=== PATIENT | female | born 1975 ===

== ENCOUNTER 2020-03-09 13:21 | Outpatient (REF) | payer MEDICAID, SELFPAY | END 2020-03-09 13:22 | disposition home or self-care (01) | LOC: HO.LAB 13:21 | PROVIDERS: Visit Provider Internal Medicine | DX: Z20.828 Contact with and (suspected) exposure to other viral communicable diseases (principal) | CPT/HCPCS: C9803; U0003 ==

== ENCOUNTER 2020-06-27 14:05 | Outpatient (REF) | payer MEDICAID, SELFPAY | END 2020-06-27 14:06 | disposition home or self-care (01) | LOC: HO.LAB 14:05 | PROVIDERS: Visit Provider Internal Medicine | DX: Z20.822 Contact with and (suspected) exposure to COVID-19 (principal) | CPT/HCPCS: 36415; C9803; U0003; U0005 ==

== ENCOUNTER 2020-07-10 09:29 | Outpatient (REF) | payer MEDICAID, SELFPAY | END 2020-07-10 09:30 | disposition home or self-care (01) | LOC: HO.LAB 09:29 | PROVIDERS: Visit Provider Internal Medicine | DX: Z20.822 Contact with and (suspected) exposure to COVID-19 (principal) | CPT/HCPCS: 36415; C9803; U0003; U0005 ==

== ENCOUNTER 2023-01-25 08:10 | Emergency (ER) | payer MEDICAID, SELFPAY ==
[2023-01-25 08:11] VITALS: BP 123/69; PULSE 109; RESP 20; TEMP 36.4; O2SAT 97; BMI 36.5
[2023-01-25 08:33] LABS: IDNOW Serial# 08D9AD1C; Strep A Nucleic Acid Negative (Negative)
--- NOTE | 2023-01-25 08:51 | ED.URI ---
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 Patient also complained of myalgias and arthralgias. She denied fever, chills, nausea vomiting or diarrhea. Patient has not been vaccinated against COVID-19. Related Data Previous Rx's Medication Instructions Recorded acetaminophen 500 mg tablet 1,000 mg (2 x 500 mg) PO Q6H PRN 01/25/23 (Tylenol Extra Strength) fever or pain #20 tabs ibuprofen 400 mg tablet 400 mg PO TID PRN fever or pain 01/25/23 #30 tabs Allergies Allergy/AdvReac Type Severity Reaction Status Date / Time No Known Allergies Allergy Verified 01/25/23 08:16 [No Known Allergies*] Review of Systems Review of Systems: Yes all other systems are reviewed and are negative [facility] Past Medical History [facility] Narrative: Past medical history: None. Past surgical history: None. Social history: She denies tobacco, alcohol and drug use Social History Social History Advance Directives: No Physical Exam Vital Signs: Vital Signs: Last Vital Signs Temp 97.5 F 01/25/23 08:11 Pulse 109 H 01/25/23 08:11 Resp 20 01/25/23 08:11 BP 123/69 01/25/23 08:11 Pulse Ox 97 01/25/23 08:11 O2 Del Method Room Air 01/25/23 08:11 BMI result Body Mass Index 36.5 Vital signs were normal except for an elevated heart rate of 109 Exam: General: Awake, alert in no distress, patient has nasal congestion and a nonproductive cough Head: Normocephalic, atraumatic EENT: PERRL, Lids normal, sclera normal, conjunctiva normal, nose normal , ears normal, throat without erythema or exudates Neck: Supple, no adenopathy, trachea midline and nontender Lung: breath sounds symmetric, no wheezing, rales or rhonchi Chest: symmetric movement, nontender Heart: regular rate and rhythm, normal S1, S2 no murmurs or rubs Abdomen: soft, non-tender, nondistended, normal bowel sounds Back: no vertebral tenderness, no CVAT Extremities: no deformities, moves all extremities symmetrically Skin: no rashes, no lesion, normal color and warmth Neuro: Awake, alert, oriented, normal speech, cranial nerves intact, moves all extremities symmetrically Psych: Pleasant, cooperative Medical Decision Making Medical Decision Making MDM Narrative: 47-year-old female with no significant past medical history who presents emergency department for 4 days of URI symptoms include nonproductive cough, pleuritic chest pain, rhinorrhea, sore throat, myalgias arthralgias. Vital signs revealed an elevated heart rate of 109 otherwise unremarkable. Physical examination is consistent with rhinorrhea and a nonproductive sound cough. The following evaluation was ordered: COVID-19, influenza, RSV, rapid strep test. Patient was treated with Motrin 400 mg orally 1010: The patient's RSV was positive, COVID-19, influenza and rapid strep were negative. I discussed RSV virus infection with the patient. Patient was prescribed ibuprofen 40 mg every 6 hours as needed for pain and fever and Tylenol 500 mg, 2 pills every 4-6 hours as needed for pain and fever. She was given a work note. She was given printed and verbal instructions discharged home. Differential Diagnosis Differential Diagnoses: The differential diagnosis associated with the presentation includes Differential diagnosis includes was not limited to pneumonia, bronchitis, viral URI, bacterial URI, COVID-19, influenza, RSV, strep throat Lab Data Laboratory evaluation interpreted by me as follows: RSV positive. Labs: Lab Results 01/25/23 Range/Units 08:18 Influenza Type A (PCR) NEGATIVE (Negative) Influenza Type B (PCR) NEGATIVE (Negative) RSV RNA Qual (PCR) POSITIVE A (Negative) SARS-CoV-2 RNA (RT-PCR) NEGATIVE (Negative) S. pyogenes GrpA MAG Negative (Negative) Discharge Plan Discharge Clinical Impression: Respiratory syncytial virus (RSV) infection Patient Disposition: Home, Self-Care Instructions: Respiratory Syncytial Virus (ED) Additional Instructions: Your COVID-19, influenza and rapid strep test were negative. You are positive for RSV virus-this is a common virus that gives you a cold. The virus can last 2-4 weeks in your cough can sometimes last 2-4 weeks as well. Take ibuprofen 200 mg pills, 2 pills every 6 hours as needed for pain or fever. Take Tylenol (acetaminophen) 500 mg pills, 2 pills every 6 hours as needed for pain or fever. Follow-up with your doctor in 2 days. Please return to the emergency department if your symptoms get worse or if you develop any symptoms that are concerning to you. Please see the work note Prescriptions: New acetaminophen [Tylenol Extra Strength] 500 mg tablet 1,000 mg PO Q6H PRN (Reason: fever or pain) Qty: 20 0RF ibuprofen 400 mg tablet 400 mg PO TID PRN (Reason: fever or pain) Qty: 30 0RF Stand Alone Forms: Work/School Release Print Language: Cambodian
--- NOTE | 2023-01-25 09:53 | PC.NURSE ---
alert. speech clear, skin wpd, sore throat and body aches, nad, awaiting lab results
[2023-01-25 09:59] LABS: Influenza A PCR NEGATIVE (Negative); Influenza B PCR NEGATIVE (Negative); Resp Syncy Virus RNA Qual PCR POSITIVE (Negative); SARS COV2 PCR INHOUSE NEGATIVE (Negative)
== END 2023-01-25 10:26 | disposition home or self-care (01) ==
PROVIDERS: Emergency Provider Emergency Medicine Emergency Medical Services
DX: J02.9 Acute pharyngitis, unspecified (principal); B97.4 Respiratory syncytial virus as the cause of diseases classified elsewhere; Z20.822 Contact with and (suspected) exposure to COVID-19; Z20.828 Contact with and (suspected) exposure to other viral communicable diseases
CPT/HCPCS: 0241U; 87651; 99282; 99283

== ENCOUNTER 2023-03-23 15:49 | Emergency (ER) | payer OTHER, SELFPAY ==
--- NOTE | ~2023-03-23 | XR_ITS ---
EXAMINATION: XR FOOT, LEFT CLINICAL INFORMATION: Pain after hitting wood COMPARISON: None available. TECHNIQUE: AP, lateral, and oblique views of the left foot. FINDINGS: Soft tissue swelling more so in the region of the fifth toe is seen. There is a subtle linear lucency consistent with a transverse oriented fracture through the proximal aspect of the fifth proximal phalanx. There is no evidence for displacement or angulation. Mild degenerative changes seen elsewhere. Prominent calcaneal heel spur at the attachment point of the plantar aponeurosis. XR/XR foot LT 2V IMPRESSION: Nondisplaced transverse oriented fracture through the proximal aspect of the fifth proximal phalanx with associated soft tissue swelling.
[2023-03-23 16:46] VITALS: BP 114/66; PULSE 90; RESP 18; TEMP 36.8; O2SAT 96; BMI 36.9
--- NOTE | 2023-03-23 16:49 | ED_ITS ---
HPI - General Adult General Chief complaint: Extremity Injury, Lower Stated complaint: L toe pain Time Seen by Provider: 03/23/23 20:55 Source: patient Mode of arrival: ambulatory Limitations: no limitations History of Present Illness HPI narrative: patient comes to the emergency room complaining of left toe pain. Patient states that yesterday she hit her pinky toe on the left foot against the morning for nature. Patient complaining of ecchymosis and swelling. Patient denies any other injuries Related Data Previous Rx's Medication Instructions Recorded acetaminophen 500 mg tablet 1,000 mg (2 x 500 mg) PO Q6H PRN 01/25/23 (Tylenol Extra Strength) fever or pain #20 tabs ibuprofen 400 mg tablet 400 mg PO TID PRN fever or pain 01/25/23 #30 tabs Allergies Allergy/AdvReac Type Severity Reaction Status Date / Time No Known Allergies Allergy Verified 03/23/23 16:46 [No Known Allergies*] Review of Systems Review of Systems: Constitutional : No Weight loss, No Fever, No Chills, No Night Sweats, No Fati benjamín, No Malaise ENT/Mouth : No Hearing loss, No Ear Pain, No Nasal Congestion, No Sinus Pain, No Hoarseness, No sore throat, No Rhinorrhea, No Swallowing Difficulty Eyes: No Eye Pain, No Swelling, No Redness, No Foreign Body, No Discharge, No Vision Changes Cardiovascular : No Chest Pain, No SOB, No Dyspnea on Exertion, No Orthopnea, No Edema, No Palpitations Respiratory : No Cough, No Sputum, No Wheezing, No Smoke Exposure, No Dyspnea Gastrointestinal : No Nausea, No Vomiting, No Diarrhea, No Constipation, No abdominal Pain, No Hematochezia, No Melena Genitourinary : no irregular bleeding, No Dysuria, No Urinary Frequency, No Hematuria, No Urinary Incontinence, No Urgency, No Flank Pain, No Urinary Flow Changes, No Hesitancy Musculoskeletal : complaining of left pinky toe pain and swelling, No Myalgias, No Joint Swelling Skin : No Skin Lesions, No rash Neuro : No Weakness, No Numbness, No Paresthesias, No Loss of Consciousness, No Dizziness, No Headache Psych : No Anxiety/Panic, No Depression, No SI/HI/AH/VH, No Social Issues, Heme/Lymph: No Bruising, No Bleeding,No Lymphadenopathy Endocrine : No Polyuria, No Polydipsia, No Temperature Intolerance [facility] Social History Social History Advance Directives: No Advance Directives Information Provided: No Physical Exam ED Vital Signs: Vital Signs - 24 hr 03/23/23 16:46 Temperature 98.3 F Pulse Rate 90 Respiratory Rate 18 Blood Pressure 114/66 Pulse Oximetry 96 BMI result Body Mass Index 36.9 Const Other: Appearance: Alert. Oriented X3. No acute distress. Eyes: Pupils equal, round and reactive to light. ENT: Pharynx normal. Neck: Normal inspection. Neck supple. No lymph nodes noted. No crepitus CVS: Normal heart rate and rhythm. Pulses normal. Normal S1 and S2 Respiratory: No respiratory distress. Breath sounds normal. No Wheezing. No rales Abdomen: Soft and nontender. No rigidity. No distention. Skin: Skin warm and dry. Normal skin color. Normal skin turgor. Extremities: no lower extremity edema. Left 5th digit is swollen and has ecchymosis. Neuro: Oriented X 3. No motor deficit. No sensory deficit. Moving all extremities. No slurred speech. CN 2 through 12 grossly intact Psych: calm, cooperative, normal affect Course Course Course Narrative: RME: 47 yold female presents to the ED for left 4th and 5th toe pain after hitting foot on wood stump yesterday. patient state sno other trauma. xray orde red. Medical Decision Making Medical Decision Making [facility] Narrative: - My interpretation of x-ray of the foot: There is a small proxy fracture in the phalanx of the 5th toe, nondisplaced - declined Tylenol or ibuprofen. - Patient's 4th and 5th toes were amairani taped Differential Diagnosis Differential Diagnoses: The differential diagnosis associated with the presentation includes ( toe contusion, dislocation, fracture) Discharge Plan Discharge Clinical Impression: Fracture of toe Patient Disposition: Home, Self-Care Instructions: Toe Fracture (ED) Additional Instructions: Please follow-up with your primary care physician tomorrow. If you have any worsening or new symptoms, please return to the emergency room or call 911 Prescriptions: No Action acetaminophen [Tylenol Extra Strength] 500 mg tablet 1,000 mg PO Q6H PRN (Reason: fever or pain) Qty: 20 0RF ibuprofen 400 mg tablet 400 mg PO TID PRN (Reason: fever or pain) Qty: 30 0RF Stand Alone Forms: Work/School Release Interventions: ED Discharge Assessment Last Done: 03/23/23 21:51 Discharge Date/Time: 03/23/23 21:52
== END 2023-03-23 21:52 | disposition home or self-care (01) ==
PROVIDERS: Emergency Provider Emergency Medicine
DX: S92.502A Displaced unspecified fracture of left lesser toe(s), initial encounter for closed fracture (principal); X58.XXXA Exposure to other specified factors, initial encounter; Y93.9 Activity, unspecified; Y92.9 Unspecified place or not applicable; Y99.9 Unspecified external cause status
CPT/HCPCS: 73620; 99282; 99283

== ENCOUNTER 2023-11-12 11:11 | Emergency (ER) | payer SELFPAY ==
--- NOTE | ~2023-11-12 | XR_ITS ---
EXAMINATION: XR ABDOMEN KUB CLINICAL INDICATION: Pain. COMPARISON: None available. TECHNIQUE: AP view of the abdomen. FINDINGS: The bowel gas pattern is normal with no evidence of ileus or obstruction. No unusual soft tissue calcifications are noted. The bones are unremarkable. XR/XR KUB IMPRESSION: Unremarkable examination.
--- NOTE | ~2023-11-12 | US_ITS ---
EXAMINATION: US ABDOMEN LIMITED CLINICAL INFORMATION: Right upper quadrant discomfort. COMPARISON: None available. TECHNIQUE: Real-time imaging of the right upper quadrant abdominal viscera. FINDINGS: PANCREAS: Pancreatic head and body normal. Tail obscured by midline bowel gas. LIVER: There is an echogenic mass in the right lobe of the liver at 29 x 31 x 29 mm, likely a hemangioma. Confirmation with gadolinium-enhanced MRI or contrast-enhanced CT would be advised. No other hepatic masses are observed. There is no intrahepatic biliary dilatation. GALLBLADDER: Gallbladder is contracted thus, the wall appears subjectively thickened. No discrete gallstones. There is no pericholecystic fluid. COMMON BILE DUCT: Normal in caliber measuring 0.2 cm in diameter. RIGHT KIDNEY: Normal. No hydronephrosis. No renal calculi or focal parenchymal lesions. The kidney measures 10.1 cm in maximum dimension. FREE FLUID: None. US/US abdomen limited IMPRESSION: No acute findings. Echogenic mass in the right lobe the liver likely a hemangioma. Further imaging workup advised.
[2023-11-12 11:29] VITALS: BP 121/78; PULSE 77; RESP 18; TEMP 36.1; O2SAT 99; BMI 33.8
--- NOTE | 2023-11-12 11:29 | ED_ITS ---
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 Her pain is constant but tends to be worse every morning. She has sometimes nausea but no vomiting. The patient states that her bowel movements are not regular and she does feel somewhat constipated. Denies any black or bloody stool. She denies any fevers, chills, recent travel. No chest pain, cough, shortness of breath Denies any blood in the urine but occasional burning with urination Denies any vaginal bleeding or discharge Related Data Previous Rx's ?Medication ?Instructions ?Recorded acetaminophen 500 mg tablet 1,000 mg (2 x 500 mg) PO Q6H PRN 01/25/23 (Tylenol Extra Strength) fever or pain #20 tabs ibuprofen 400 mg tablet 400 mg PO TID PRN fever or pain 01/25/23 #30 tabs magnesium citrate 300 ml PO DAILY #296 mL 11/13/23 polyethylene glycol 3350 17 17 g PO DAILY 2 weeks #238 grams 11/13/23 gram/dose oral powder (Miralax) Allergies Allergy/AdvReac Type Severity Reaction Status Date / Time No Known Allergies Allergy Verified 11/12/23 11:30 [No Known Allergies*] Review of Systems 2 Constitutional: Constitutional: Denies body ache(s), Denies chills and Denies fever(s) Eyes: Eyes: Denies blurry vision ENT: Denies vertigo Cardiovascular: Cardiovascular: Denies chest pain and Denies dyspnea Respiratory: Respiratory: Denies cough and Denies dyspnea Gastrointestinal: Gastrointestinal: Reports abdominal pain, Denies hematochezia, Reports constipation, Reports nausea and Denies vomiting Musculoskeletal: Musculoskeletal: Denies back pain Integumentary/Breasts: Skin/Breast: Denies rash Neurologic: Denies vertigo PMFSH Social History Social History Advance Directives: No Advance Directives Information Provided: No Do you have a plan to hurt others: No Plan Physical Exam ED Vital Signs: Vital Signs - 24 hr 11/12/23 11:29 11/13/23 00:01 Temperature 96.9 F 97.5 F Pulse Rate 77 72 Respiratory Rate 18 18 Blood Pressure 121/78 101/54 L Pulse Oximetry 99 98 Oxygen Delivery Method Room Air Room Air BMI result Body Mass Index 33.8 Const General: healthy appearing, comfortable, no acute distress, alert and awake Nutritional Appearance: well nourished Orientation/consciousness: patient oriented x3 HENMT Head: Yes normocephalic and Yes atraumatic Throat: Yes posterior oropharynx normal Eyes Eyelids: Yes eyelids normal Conjunctivae: conjunctivae normal Sclerae: sclerae normal Corneas: corneas normal Pupils: Equal, round and reactive pupils present EOM: EOMs intact bilaterally Neck Neck: Yes full ROM Resp Effort & Inspection: normal respiratory effort, able to speak in complete sentences and not labored GI Inspection: No distended Palpation (GI): Soft to palpation, not firm, Tenderness to palpation present (GI) in the LLQ and in the LUQ, no guarding and not rigid Skin General skin exam: elasticity normal Neuro General: patient oriented x3 Cranial nerves: Yes Equal, round and reactive pupils present and Yes Bilaterally intact EOM present Cognition (Neuro): normal cognition Extrem Other: Moving all extremities well without any obvious deformities Course Course Course Narrative: This is an RME: Additional HPI, ROS, PE not included below will be deferred to primary provider. RME assessment and note performed by: Joelle Alvarez PA-C This is a [id number], with no known medical problems, who presents to the ER with complaints of abdominal pain x 2 weeks. Pain comes and goes. No N/V or urinary symptoms. VSS, further ER eval needed. Plan: Labs, UA, US abd Reevaluation(s) Reevaluation #1: UA is likely contaminant, no obvious infection, will await culture Time: 00:31 Medications Administered Discontinued Medications Generic Name Dose Route Start Last Admin Trade Name Freq PRN Reason Stop Dose Admin Al Hydroxide/Mg Hydroxide 30 ml 11/12/23 23:42 11/12/23 23:59 Magnesium Hydrox/Alum Hydrox 30 Ml Oral.Susp PO 11/12/23 23:43 30 ml ONCE ONE Administration Lidocaine HCl 15 ml 11/12/23 23:42 11/12/23 23:59 Lidocaine Hcl Viscous 2 % 15 Ml Solution MUCOUS MEM 11/12/23 23:43 15 ml ONCE ONE Administration Ondansetron HCl 4 mg 11/12/23 23:42 11/12/23 23:59 Ondansetron Odt 4 Mg Tab.Citlaly CRISTINA 11/12/23 23:43 4 mg ONCE ONE Administration Medical Decision Making Medical Decision Making [facility] Narrative: 48-year-old female presents for evaluation abdominal pain on and off for the last 2 weeks. She had labs and an ultrasound ordered in triage. I reviewed these without any significant abnormalities. Her ultrasound does show a likely liver hemangioma but no evidence of gallstones or cholecystitis. Her tenderness is in the left upper quadrant during my evaluation. Given her history and physical exam findings ordered a KUB to evaluate for constipation. By my report this shows significant obstipation and constipation. Will treat with MiraLax and magnesium citrate. Patient is awaiting urinalysis as she does endorse burning with urination. Differential Diagnosis Differential Diagnoses: The differential diagnosis associated with the presentation includes Cholelithiasis Acute cholecystitis Abdominal pain Gastroenteritis UTI Cystitis Obstructive uropathy less likely Lab Data [facility] Lab Attestation statement: I reviewed the patient's lab results. No leukocytosis or anemia. Normal platelet count. No electrolyte abnormalities requiring intervention, normal renal function. LFTs within normal limits 11/12/23 12:35 11/12/23 12:35 Labs: Lab Results 11/12/23 11/13/23 Range/Units 12:35 00:18 WBC 5.7 (4.8-10.8) X10*3/uL RBC 4.32 (4.20-5.50) X10*6/uL Hgb 12.8 (12.0-16.0) g/dl Hct 37.9 (37.0-47.0) % MCV 87.7 (80.0-98.0) fL MCH 29.6 (27.0-33.0) pg MCHC 33.8 (31.0-35.0) g/dl RDW 13.0 (11.0-16.0) % Plt Count 200 (160-400) X10*3/uL MPV 11.6 (9.4-12.3) fL Immature Gran % (Auto) 0.3 (0.0-0.4) % Neut % (Auto) 60.7 (45-73) % Lymph % (Auto) 30.4 (20-40) % [place] % (Auto) 7.0 (2-11) % Eos % (Auto) 0.7 (0-4) % Baso % (Auto) 0.9 (0-2) % Lymph # (Auto) 1.7 (1.2-4.9) X10*3/uL [place] # (Auto) 0.4 (0.1-1.2) X10*3/uL Eos # (Auto) 0.0 (0.0-0.4) X10*3/uL Baso # (Auto) 0.1 (0.0-0.2) X10*3/uL Abs Immat Gran (auto) 0.02 (0.00-0.03) X10*3/uL Absolute Neuts (auto) 3.5 (2.0-8.3) x10*3/uL Absolute Nucleated RBC 0.000 (0.0-0.012) X10*3/uL Nucleated RBC % (auto) 0.0 (0.0-0.2) /100WBC Sodium 138 (135-145) mmol/L Potassium 4.7 (3.3-5.1) mmol/L Chloride 110 H (96-108) mmol/L Carbon Dioxide 22 (22-29) mmol/L Anion Gap 11 L (12-20) BUN 10 (9-16) mg/dL Creatinine 0.80 (0.5-1.4) mg/dL Estim Creat Clear Calc 78.1 Estimated GFR > 60 Random Glucose 99 (60-115) mg/dL Calcium 8.9 (8.4-10.2) mg/dL Total Bilirubin 0.5 (0.0-1.0) mg/dL Direct Bilirubin 0.1 (0.0-0.5) mg/dL AST 18 (5-31) U/L ALT 16 (0-31) U/L Alkaline Phosphatase 43 (39-117) U/L Troponin I High Sens < 2.7 (<3.5-17.0) ng/L Total Protein 7.3 (6.5-8.0) g/dL Albumin 3.9 (3.5-5.0) g/dL Lipase 25 (8-78) U/L Beta HCG, Quant < 2 mIU/mL Urine Color Yellow Urine Appearance Clear Urine pH 5.5 (5.0-9.0) Ur Specific [place] >= 1.030 H (1.005-1.025) Urine Protein Negative (Neg-Trace) mg/dL Urine Glucose (UA) Negative (Negative) mg/dL Urine Ketones Trace (Negative) mg/dL Urine Blood Negative (Negative) Urine Nitrite Negative (Negative) Ur Leukocyte Esterase Negative (Negative) Urine RBC 0-2 (0-2) /HPF Urine WBC 0-5 (0-5) /HPF Ur Squamous Epith Cells 6-10 (0-2) /HPF Urine Bacteria 1+ (None Seen) Hyaline Casts 0-2 (0-2) /LPF Independent Interpretation I performed an independent interpretation of an: Plain X-Ray (Right-sided stool burden, left-sided obstipation) Discharge Plan Discharge Clinical Impression: Constipation Patient Disposition: Home, Self-Care Instructions: Constipation (ED) Additional Instructions: Your workup in the ER today was reassuring. Your blood work did not show any concerning abnormalities. Your ultrasound did not show any gallstones You did have a spot on your liver that is likely a benign hemangioma You should follow this up with your primary doctor when able Your x-ray shows significant constipation Take MiraLax and magnesium citrate as directed Drink lots of fluids and increase fiber intake in your diet Prescriptions: New polyethylene glycol 3350 [Miralax] 17 gram/dose powder 17 g PO DAILY 14 Days Qty: 238 0RF magnesium citrate Solution 300 ml PO DAILY Qty: 296 0RF No Action acetaminophen [Tylenol Extra Strength] 500 mg tablet 1,000 mg PO Q6H PRN (Reason: fever or pain) Qty: 20 0RF ibuprofen 400 mg tablet 400 mg PO TID PRN (Reason: fever or pain) Qty: 30 0RF Print Language: Kazakh
--- NOTE | 2023-11-12 11:35 | ECG_ITS ---
Test Reason : EPIGASTRIC PAIN Blood Pressure : / mmHG Vent. Rate : 060 BPM Atrial Rate : 060 BPM P-R Int : 132 ms QRS Dur : 082 ms QT Int : 380 ms P-R-T Axes : 050 002 006 degrees QTc Int : 380 ms Normal sinus rhythm Minimal voltage criteria for LVH, may be normal variant ( R in aVL ) Cannot rule out Anterior infarct , age undetermined Abnormal ECG No previous ECGs available Referred By: Joelle Alvarez Electronically Signed By:Esteban Young
[2023-11-12 12:40] LABS: MANUAL DIFF FLAG NO
[2023-11-12 12:41] LABS: Basophils Absolute Auto 0.1 X10*3/uL (0.0-0.2); Basophils Percent Auto 0.9 % (0-2); Eosinophils Percent Auto 0.7 % (0-4); Hematocrit 37.9 % (37.0-47.0); Hemoglobin 12.8 g/dl (12.0-16.0); Imm Gran Abs Auto 0.02 X10*3/uL (0.00-0.03); Imm Gran Pct Auto 0.3 % (0.0-0.4); Lymphocytes Absolute Auto 1.7 X10*3/uL (1.2-4.9); Lymphocytes Percent Auto 30.4 % (20-40); Mean Corpuscular HGB Conc 33.8 g/dl (31.0-35.0); Mean Corpuscular Hemoglobin 29.6 pg (27.0-33.0); Mean Corpuscular Volume 87.7 fL (80.0-98.0); Mean Platelet Volume 11.6 fL (9.4-12.3); Monocytes Absolute Auto 0.4 X10*3/uL (0.1-1.2); Neutrophils Absolute Auto 3.5 x10*3/uL (2.0-8.3); Neutrophils Percent Auto 60.7 % (45-73); Platelet Count 200 X10*3/uL (160-400); Red Blood Count 4.32 X10*6/uL (4.20-5.50); White Blood Count 5.7 X10*3/uL (4.8-10.8)
[2023-11-12 13:04] LABS: Alanine Aminotransferase 16 U/L (0-31); Albumin Level 3.9 g/dL (3.5-5.0); Alkaline Phosphatase 43 U/L (39-117); Anion Gap 11 (12-20); Aspartate Amino Transferase 18 U/L (5-31); Bilirubin Direct 0.1 mg/dL (0.0-0.5); Bilirubin Total 0.5 mg/dL (0.0-1.0); Blood Urea Nitrogen 10 mg/dL (9-16); Calcium 8.9 mg/dL (8.4-10.2); Carbon Dioxide 22 mmol/L (22-29); Chloride 110 mmol/L (96-108); Creatinine Clr Calc Pharmacy 78.1; Estimated Glomerular Filt Rate > 60; Glucose Random 99 mg/dL (60-115); HCG Quantitative < 2 mIU/mL; Lipase 25 U/L (8-78); Potassium 4.7 mmol/L (3.3-5.1); Sodium 138 mmol/L (135-145); Total Protein 7.3 g/dL (6.5-8.0)
[2023-11-12 13:06] LABS: Troponin-I High Sensitivity < 2.7 ng/L (<3.5-17.0)
[2023-11-12] MEDS: Lidocaine HCl Viscous 2 % 15 ML SOLUTION MUCOUS MEM (23:59)
[2023-11-12] MEDS: Magnesium Hydrox/Alum Hydrox 30 ML ORAL.SUSP PO (23:59)
[2023-11-12] MEDS: Ondansetron ODT 4 MG TAB.RAPDIS TRANSLINGU (23:59)
[2023-11-13 00:01] VITALS: BP 101/54; PULSE 72; RESP 18; TEMP 36.4; O2SAT 98
[2023-11-13 00:25] LABS: Appearance Urine Clear; Color Urine Yellow; Glucose Urine UA Negative (Negative); Leukocyte Esterase Urine Negative (Negative); Nitrite Urine Negative (Negative); PH 5.5 (5.0-9.0); Specific Gravity - Urine >= 1.030 (1.005-1.025); Urine Blood Negative (Negative); Urine Ketones Trace mg/dL (Negative); Urine Protein Negative (Neg-Trace)
[2023-11-13 00:28] LABS: Bacteria Urine 1+ (None Seen); Hyaline Casts Urine 0-2 /LPF (0-2); RBC Urine 0-2 /HPF (0-2); WBC Urine 0-5 /HPF (0-5)
[2023-11-13 00:43] VITALS: BP 107/59; PULSE 72; RESP 16; TEMP 36.8; O2SAT 98
[2023-11-13 00:55] VITALS: BP 107/59; PULSE 72; RESP 16; TEMP 36.8; O2SAT 98
== END 2023-11-13 00:57 | disposition home or self-care (01) ==
PROVIDERS: Physician Assistant; Physician Assistant Medical; Emergency Provider Internal Medicine
DX: K59.00 Constipation, unspecified (principal); R10.2 Pelvic and perineal pain; R10.12 Left upper quadrant pain; R94.31 Abnormal electrocardiogram [ECG] [EKG]; Z79.899 Other long term (current) drug therapy
CPT/HCPCS: 36415; 74018; 76705; 80048; 80076; 81001; 83690; 84484; 84702; 85025; 93005; 99284

== ENCOUNTER → 2023-11-12 11:35 | Outpatient (BNV) | payer SELFPAY | PROVIDERS: Emergency Provider Internal Medicine; Visit Provider Internal Medicine Cardiovascular Disease | DX: R94.31 Abnormal electrocardiogram [ECG] [EKG] (principal) | CPT/HCPCS: 93010 ==